=== PATIENT | female | born 2000 | race Two or more races ===

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

== ENCOUNTER → 2019-06-19 | Outpatient (REF) | payer OTHER ==
[2019-06-19 14:16] LABS: ALBUMIN 4.2 GM/DL (3.2-5.2); ALT/SGPT 23 U/L (12-78); BILIRUBIN,TOTAL 0.4 MG/DL (0.2-1.0); BLOOD UREA NITROGEN 11 MG/DL (7-18); CALCIUM LEVEL 9.7 MG/DL (8.5-10.1); CARBON DIOXIDE LEVEL 27 MEQ/L (21-32); CHLORIDE LEVEL 104 MEQ/L (98-107); CHOLESTEROL LEVEL 181 MG/DL (<200); CHOLESTEROL RISK RATIO 3.693 (<5); CREATININE FOR GFR 0.67 MG/DL (0.55-1.30); FREE T4 1.05 NG/DL (0.78-1.33); GLUCOSE, FASTING 80 MG/DL (70-100); HDL CHOLESTEROL 49 MG/DL (>40); LDL CHOLESTEROL 108 MG/DL (<100); NON-HDL-C 132 MG/DL; SODIUM LEVEL 139 MEQ/L (136-145); THYROID STIMULATING HORMONE 0.694 uIU/ML (0.463-3.98); TOTAL PROTEIN 7.8 GM/DL (6.4-8.2); TRIGLYCERIDES LEVEL 122 MG/DL (<150)
== END ==
LOC: M SFHCPLAZ 11:28
PROVIDERS: ATTEND Physician Assistant Medical
DX: Z13.220 Encounter for screening for lipoid disorders (principal); F32.9 Major depressive disorder, single episode, unspecified

== ENCOUNTER → 2020-01-29 | Outpatient (CLI) | payer SELFPAY | LOC: M LABSMTC 12:00 | PROVIDERS: ATTEND Pediatrics | DX: Z20.828 Contact with and (suspected) exposure to other viral communicable diseases (principal) ==

== ENCOUNTER → 2020-07-08 | Outpatient (CLI) | payer SELFPAY | LOC: M LABSMTC 13:11 | PROVIDERS: ATTEND Pediatrics | DX: Z11.52 Encounter for screening for COVID-19 (principal) ==

== ENCOUNTER → 2021-01-02 | Outpatient (CLI) | payer OTHER ==
--- NOTE | 2021-01-02 10:14 | REP ---
INDICATION: PAIN IN RIGHT KNEE COMPARISON: None. TECHNIQUE: Five views right knee. FINDINGS: There is no evidence of acute fracture, dislocation, or intrinsic bone disease.The joint spaces are unremarkable. There is no radiographic evidence of a joint effusion. IMPRESSION: Essentially negative right knee series. <Electronically signed by Tejas Guevara > 01/02/21 1013
== END ==
LOC: M WUC 09:22
PROVIDERS: ATTEND Physician Assistant
DX: M25.561 Pain in right knee (principal)

== ENCOUNTER → 2021-06-04 | Outpatient (REF) | payer OTHER | LOC: M SFHCWAGY 17:08 | PROVIDERS: ATTEND Nurse Practitioner Women's Health | DX: Z12.4 Encounter for screening for malignant neoplasm of cervix (principal) ==

== ENCOUNTER → 2023-06-18 | Outpatient (REF) | payer OTHER | LOC: M LAB REF 19:16 | PROVIDERS: ATTEND Physician Assistant | DX: R30.0 Dysuria (principal) ==

== ENCOUNTER → 2023-12-03 | Outpatient (REF) | payer OTHER | LOC: M SFHCWAGY 15:07 | PROVIDERS: ATTEND Nurse Practitioner Family | DX: Z12.4 Encounter for screening for malignant neoplasm of cervix (principal) ==